=== PATIENT | male | born 2000 | race Two or more races ===

== ENCOUNTER 2022-03-10 14:59 | Outpatient (CLI) | payer BC | END 2022-03-10 15:09 | disposition home or self-care (01) | LOC: PPH VACUNA 14:59 | PROVIDERS: ATTEND Emergency Medicine Pediatric Emergency Medicine | DX: Z23 Encounter for immunization (principal) ==

== ENCOUNTER 2024-05-03 10:25 | Outpatient (CLI) | payer OTHER | END 2024-05-03 10:30 | disposition home or self-care (01) | LOC: RAD 10:25 | PROVIDERS: ATTEND Orthopaedic Surgery | DX: M25.571 Pain in right ankle and joints of right foot (principal) ==

== ENCOUNTER 2025-01-06 23:18 | Emergency (ER) | payer OTHER ==
[~2025-01-06] VITALS: Ht 167.6 cm; Wt 59.0 kg
[2025-01-07] MEDS ORDERED: IBUPROFEN600 MG PO (00:45)
== END 2025-01-07 01:14 | disposition home or self-care (01) ==
LOC: ER 23:18
DX: S93.401A Sprain of unspecified ligament of right ankle, initial encounter (principal); X58.XXXA Exposure to other specified factors, initial encounter; Y93.66 Activity, soccer; Y92.89 Other specified places as the place of occurrence of the external cause; Y99.9 Unspecified external cause status

== ENCOUNTER 2025-02-16 20:46 | Emergency (ER) | payer OTHER ==
[~2025-02-16] VITALS: Ht 167.6 cm; Wt 59.0 kg
[~2025-02-16 20:46] MED LIST: IBUPROFEN600 MG PO
[2025-02-16] MEDS ORDERED: FAMOtidine 10 MG/ML (4ML VIAL) IV PUSH ONE (21:00)
[2025-02-16] MEDS ORDERED: ONDANSETRON HCL 2 MG/ML VIAL IM ONE (21:00)
[2025-02-16] MEDS ORDERED: CETIRIZINE HCL 5 MG/5 ML ML PO ONE (21:00)
[2025-02-16] MEDS ORDERED: ONDANSETRON HCL 2 MG/ML VIAL ONE (21:08)
[2025-02-16] MEDS ORDERED: CETIRIZINE HCL 5MG/5ML BLIST.PACK PO ONE (21:09)
[2025-02-16] MEDS ORDERED: FAMOTIDINE/PF 20 MG/2 ML VIAL ONE (21:09)
[2025-02-16 21:28] LABS: BASO % 0.3 % (0.1-1.2); EOS # 0.06 (0.04-0.54); EOS % 0.4 % (0.7-7.0); LYMPH # 1.34 (1.18-3.74); LYMPH % 8.7 % (19.3-53.1); MEAN PLATELET VOLUME 10.00 fl (9.4-12.4); MONO # 0.91 (0.24-0.82); MONO % 5.9 % (4.7-12.5); NEUT # 13.07 (1.56-6.13); NEUT % 84.4 % (34.0-71.1); RED CELL DISTRIBUTION WIDTH 12.0 % (11.6-14.4)
[2025-02-16] MEDS ORDERED: CEFTRIAXONE SODIUM 1,000 MG VIAL IM ONE (22:00)
[2025-02-16 22:12] LABS: COVID-19 AG NEGATIVE (NEGATIVE)
[2025-02-16] MEDS ORDERED: 0.9 % SODIUM CHLORIDE 1,000 ML IV ONE (22:15)
[2025-02-17 00:06] LABS: INR 1.09
[2025-02-17 00:13] LABS: ALT/SGPT 25.0 U/L (12-78); AST/SGOT 96.0 U/L (15-37); BILIRUBIN TOTAL 0.79 mg/dL (0.3-1.2); BUN CREA RATIO 14.0 (7.0-25.0); CREATININE SERUM 0.86 mg/dL (0.70-1.30); GFR 111.2; GLOBULINA 3.5 G/DL (2.4-3.5); GLUCOSE FASTING 78.0 mg/dL (65-100); OSMOLALITY SERUM 274.0 MOSM/KG (275-295)
[2025-02-17] MEDS ORDERED: DEXAMETHASONE SODIUM PHOSPHATE 4 MG/ML VIAL IV STA (01:42)
[2025-02-17] MEDS ORDERED: DIPHENHYDRAMINE HCL 50 MG/ML VIAL 1ML IM STA (01:43)
[2025-02-17] MEDS ORDERED: DEXAMETHASONE SODIUM PHOSPHATE 4 MG/ML VIAL ONE (02:15)
[2025-02-17] MEDS ORDERED: DIPHENHYDRAMINE HCL 50 MG/ML VIAL 1ML ONE (02:15)
== END 2025-02-17 02:29 | disposition home or self-care (01) ==
LOC: ER 20:46
PROVIDERS: General Practice
DX: R11.2 Nausea with vomiting, unspecified (principal); M79.10 Myalgia, unspecified site; R09.81 Nasal congestion; Z20.822 Contact with and (suspected) exposure to COVID-19
CPT/HCPCS: 36415; 74177; Q9965